=== PATIENT | male | born 1965 | race Native Hawaiian/Other Pacific Islander ===

== ENCOUNTER 2017-03-22 09:04 | Day surgery (SDC) | payer BC ==
[2017-03-18 09:10] VITALS: BMI 39.5
[2017-03-22] MEDS ORDERED: Lidocaine 1% Inj (20ml) ONE (11:06)
[2017-03-22] MEDS ORDERED: Bupivacaine-Epi 0.25%-1:200,000 PF Inj ONE (11:06)
[2017-03-22] MEDS ORDERED: ceFAZolin IV 2 gm in Dextrose 1 GM/50 ML BAG IVPB ONE (11:06)
[2017-03-22] MEDS ORDERED: Lactated Ringer's 1,000 ML IV ONE (11:37)
[2017-03-22] MEDS ORDERED: Propofol 10 mg/ml Inj (20 ML) ONE (11:41)
[2017-03-22] MEDS ORDERED: Midazolam 2 MG/2 ML VIAL ONE (11:41)
[2017-03-22] MEDS ORDERED: ePHEDrine 50 mg/ml Inj ONE (12:18)
--- NOTE | 2017-03-22 13:25 | PCM.SURG1 ---
Surgeon's Initial Post Op Note - Surgeon's Notes Surgeon: Dr. Narvaez Research Study Assistant: Dr. Phuc Hall Type of Anesthesia: General LMA Pre-Operative Diagnosis: Lipoma of R. & L. gluteal region Operative Findings: Lipoma in R&L gluteal region Post-Operative Diagnosis: Lipoma of R. & L. gluteal region Operation Performed: Excision of Lipoma Specimen/Specimens Removed: R & L lipoma Estimated Blood Loss: EBL {In ML}: 10 Blood Products Given: N/A Drains Used: No Drains Post-Op Condition: Good Date of Surgery/Procedure: 03/22/17 Time of Surgery/Procedure: 01:00
--- NOTE | 2017-03-22 13:28 | CP.SDSHP ---
Same Day Surgery H & P - History Proposed Procedure: Excision of lipoma Pre-Op Diagnosis: Lipoma of R & L gluteal region - Previous Medical/Surgical History Pain: 2.Mild Pain Previous Surgical History: Cholecystectomy 8 yrs ago - Allergies Allergies: Allergies No Known Allergies Allergy (Verified 03/18/17 09:08) - Current Medications Current Medications: None - Physical Exam General Appearance: Well-developed, NAD Vital Signs: Vital Signs 03/22/17 09:29 Temperature 97.6 F Pulse Rate 106 H Respiratory 20 Rate Blood Pressure 148/87 O2 Sat by Pulse 98 Oximetry Mental Status: Alert & Oriented x3 Neuro: WNL Heart: WNL Lungs: WNL GI: WNL - {Optional Preform as Required} Integument: Other (B/l lipoma present in gluteal region. Tender to palpation) - Impression Pt. Evaluated Today:Candidate for Anesthesia & Procedure: Yes - Date & Time Date: 03/22/17 Time: 12:00 Short Stay Discharge - Short Stay Discharge Admitting Diagnosis/Reason for Visit: EXCISION LIPOMA OF THIGH Disposition: HOME/ ROUTINE Follow-up: Make appointment with Dr. Narvaez in office in 1-2 weeks Instructions: Excision of Skin Lesion (DC) Additional Instructions (Diet, Activity): Keep dressing intact, white strips will fall off on their own. Ok to shower and get area wet in 48 hours. Avoid prolonged sitting for 1 week Follow up in Dr. Narvaez's office in 1-2 weeks
[2017-03-22] MEDS ORDERED: HYDROmorphone 0.5 mg/0.5 ml ISec IVP PRN (14:05)
[2017-03-22 14:47] VITALS: TEMP 98
[2017-03-22 15:05] VITALS: BP 148/72; PULSE 63; RESP 18; O2SAT 100
--- NOTE | 2017-03-23 01:58 | OP ---
PROCEDURE DATE: 03/22/2017 PREOPERATIVE DIAGNOSES: 1. Right posterior thigh lipoma, approximately 4 x 3 cm size. 2. Left posterior thigh lipoma, 6 x 5 cm size. POSTOPERATIVE DIAGNOSES: 1. Right posterior thigh lipoma, approximately 4 x 3 cm size. 2. Left posterior thigh lipoma, 6 x 5 cm size. PROCEDURE DONE: 1. Excision of right posterior thigh lipoma, 4 x 3 cm size. 2. Excision of the left posterior thigh lipoma, 6 x 5 cm size. 3. Complex closure of left thigh wound 4 x 3 cm size. 4. Complex layer closure of right thigh wound 3 x 2 cm size. SURGEON: The procedure was done by Henok phillips MD [employer]: Dr. Puhc Hall. TYPE OF ANESTHESIA: General endotracheal tube anesthesia. ESTIMATED BLOOD LOSS: Around 20 mL for both procedures. COMPLICATIONS: None. DRAIN: None. INTRAOPERATIVE FINDINGS: The patient had approximately 4 x 3 cm right thigh and 6 x 5 cm left thigh lipoma posteriorly. DESCRIPTION OF PROCEDURE: On intraoperative steps, this 51-year-old male who was diagnosed with right thigh lipoma as well as large left thigh lipoma and the patient was consented for excision of the lipoma of the right thigh as well as left thigh and the patient was brought to the OR and placed supine on the operating table. After induction of the anesthesia, the patient was placed in the right lateral position and perineal area was prepped and draped and first elliptical incision was made surrounding the right thigh lipoma approximately 3 x 2 cm size. After making incision, upper and lower flap was created and dissection was carried down the deep into the subcutaneous tissue and large lipoma of the right posterior thigh was excise and it was sent to the table for the pathology and complex closure of the wound was done due to the space. The upper and lower flaps were sutured to the underlying fascia, another layer of the subcu with 3-0 Vicryl, skin with 4-0 Monocryl, and another layer of skin with 4-0 Nylon and dry sterile dressing was applied. Now, the left posterior thigh elliptical incision was made approximately 4 x 2 cm size and upper and lower flap was created. The lipoma was large and the dissection was carried down up to the underlying fascia and muscle and after complete dissection, the lipoma was completely excised and sent to the table for the pathology. Hemostasis was achieved. The wound was irrigated. Now, the complex layer closure of the wound was done due to the space and upper and lower flaps were sutured with multiple stitches to the underlying fascia and subcu with 2-0 Vicryl, another layer of the subcu with 3-0 Vicryl, skin with 4-0 Monocryl, and another layer of skin with 4-0 Nylon interrupted suture and dry sterile dressing was applied. The patient tolerated the procedure well. Count of the instruments was correct. There was no apparent complications. Henok Narvaez MD
== END 2017-03-22 15:08 | disposition home or self-care (01) ==
LOC: C.SDS 09:04
PROVIDERS: ATTEND Surgery Surgical Critical Care
DX: D17.23 Benign lipomatous neoplasm of skin and subcutaneous tissue of right leg (principal)
CPT/HCPCS: 11404; 11406; 13121; 88304; J0690; J1170; J2250; J2704; J3010; J7120